=== PATIENT | female | born 1945 | race Caucasian/White ===

== ENCOUNTER → 2017-08-25 | Outpatient (CLI) | payer OTHER ==
[~2017-08-25] VITALS: Ht 170.2 cm; Wt 108.9 kg
[~2017-08-25] MED LIST: ASPIRIN325 PO; CELEBREX 200 M200 M1 PO; CHANTIX0.5 MG PO; COZAAR 25 MG TA25 MG PO; CYMBALTA60 MG PO; DEMADEX20 MG PO; DICLOFENAC SODI75 MG PO; EFFIENT10 MG PO; HYDROCODONE-AP1 EAC6 PO; MELATONIN5 M1 PO; METOPROLOL SUCC50 MG PO; MOBIC7.5 MG PO; POTASSIUM20 PO; TRAMADOL 50 MG50 MG PO; VENTOLIN HFA 1818 GM INH; ZANAFLEX4 MG PO; ZESTRIL40 MG PO; ZOCOR 10 MG TAB10 MG PO
--- NOTE | ~2017-08-25 | CATHLAB ---
[facility] [place] [address] INVASIVE PROCEDURE REPORT Name: ANANTH JONES [id number] Admission: 08/25/17 Attend Phys: Andrez Sánchez, Discharge: Date of : 47 Date of Service: 08/30/17 0845 Report #: [id number] THIS REPORT FOR: //name// APPROVED REPORT Patient Details Patient Status: Out-Patient Room #: The patient is a 72 year-old female Event Personnel Andrez Sánchez Senior Abap Developer, Ellis Morton RN, Rosy Lovett Sandifer, David Monitor Procedures Performed Right and Left Heart Cath w/or w/o Coronarie [id number] [facility] Hemostasis w/ Mynx Procedure Narrative The Right Groin^ was infiltrated with 1% Lidocaine subcutaneous anesthesia. A PINNACLE 6FR Sheath #[id number] sheath was inserted into the RFA^. Coronary angiography was performed using coronary diagnostic catheters. The right coronary system was accessed and visualized with a JR4 catheter. The left coronary system was accessed and visualized with a JL4 catheter. The left ventricle was accessed and visualized with a PIGTAIL catheter. Left ventriculogram was performed in 30 degree projection. An aortogram of the abdominal aorta was performed. The patient tolerated the procedure well and there were no complications associated with the procedure. There was no hematoma. Intraoperative Conscious Sedation Sedation start time: 8.17 Case end Time: 8.36 Fentanyl 25.0 mcg Versed 1.5 mg Fluoro Time: 2.01 minutes Dose: 452 mGy Contrast Type and Amount: Visipaque 125 ml Hemodynamics The right ventricular pressure is 60/18 mmHg. The pulmonary artery pressure is 59/30 mmHg with a mean of 41 mmHg. The mean pulmonary capillary wedge pressure is 29 mmHg. The aortic pressure is 162/76 mmHg with a mean of 76 mmHg. The left ventricular pressure is 131/15 mmHg with a mean of mmHg. The left ventricular end diastolic pressure [facility] [address] [place] [address] INVASIVE PROCEDURE REPORT Name: ANANTH JONES Room #: REG [facility]#: [id number] Admission: 08/25/17 Attend Phys: Andrez Sánchez, Discharge: Date of : 47 Date of Service: 08/30/17 0845 Report #: [id number] is 25 mmHg. The cardiac output using thermo method is 5.90 L/min. The cardiac index using thermo method is 2.86 L/min/m2. Conclusion #1 left main with mild irregularity giving rise to LAD and circumflex #2 LAD proximal stent with 50% in-stent restenosis and diffuse disease and LAD diagonal system but no occlusive disease #3 circumflex OM nondominant a mid circumflex lesion 50-60% but relatively small-caliber. #4 dominant right coronary artery long segment proximal mid vessel previously stented with mild in-stent restenosis eccentric proximal RCA lesion of 40-50% PDA is diffusely diseased #5 normal left ventricular size with inferior hypokinesis EF 40-45% #6. Right heart catheterization with cardiac output by thermodilution see above hemodynamics Recommendations and plan moderate elevation pulmonary pressures and wedge pressure. Needs more aggressive diuresis sodium and fluid restriction. Moderate coronary disease as described above no indication for current intervention. No lifting for 48 hours to lying in tub Jacuzzi or Deng for a week. Follow-up 3 months <ELECTRONICALLY SIGNED> By: Andrez Sánchez MD, FACC 08/30/17844 4 4 Andrez Sánchez MD, FACC /INF
--- NOTE | ~2017-08-25 | EKG ---
[place] [address] [facility] [employer] [place] [address] ELECTROCARDIOGRAM REPORT Name: ANANTH JONES [facility] [id number] Admission: 08/25/17 Attend Phys: Andrez Sánchez MD, Discharge: Date of : 47 Report #: [id number] THIS REPORT FOR: //name// [facility] Test Date: 2017-08-25 Test Time: 07:09:15 Pat Name: ANANTH JONES Department: Room: Gender: F Director Of Online Merchandising: JLAMBERTZ : 1945 Requested By: Andrez Sánchez Order Number: [id number] MD: Max Amador Measurements Intervals [place] Rate: 68 P: 79 [place]: 159 QRS: 48 QRSD: 103 T: -62 QT: 372 QTc: 396 Interpretive Statements Sinus rhythm Nonspecific ST and T wave abnormality Cannot rule out inferior infarct, age indeterminate Compared to ECG 04/25/2015 08:15:34 No significant changes Electronically Signed On 08-25-2017 8:19:08 [employer]PLANE MECH[employer]IC APPRENTICE by Max Amador [email or web address] <ELECTRONICALLY SIGNED> By: Max Amador MD, [facility] 08/25/17818 8 8 Max Amador MD, [facility] /EPI
[2017-08-25 07:18] VITALS: BP 143/72
[2017-08-25 07:28] LABS: HEMATOCRIT 41.5 % (37.0-47.0); HEMOGLOBIN 13.7 gm/dL (12.0-15.0); MCH 26.8 pg (26.0-34.0); MCV 81.2 fL (80.0-100.0); RBC 5.12 mil/uL (4.20-5.00); RDW 16.1 % (10.5-14.5); WBC 11.8 thou/uL (4.0-11.0)
[2017-08-25 07:36] LABS: CALCIUM 9.7 mg/dL (8.5-10.1); CREATININE 1.1 mg/dL (0.6-1.0); POTASSIUM 4.6 mmol/L (3.5-5.1)
== END | disposition home or self-care (01) ==
LOC: CATH 06:43
PROVIDERS: Internal Medicine Cardiovascular Disease
DX: I25.10 Atherosclerotic heart disease of native coronary artery without angina pectoris (principal); I10 Essential (primary) hypertension; E78.00 Pure hypercholesterolemia, unspecified; I42.9 Cardiomyopathy, unspecified; F17.210 Nicotine dependence, cigarettes, uncomplicated; Z95.5 Presence of coronary angioplasty implant and graft; Z96.642 Presence of left artificial hip joint; Z98.890 Other specified postprocedural states; Z88.8 Allergy status to other drugs, medicaments and biological substances; Z79.82 Long term (current) use of aspirin; Z79.899 Other long term (current) drug therapy; Z79.891 Long term (current) use of opiate analgesic

== ENCOUNTER → 2019-11-17 | Outpatient (CLI) | payer OTHER | LOC: SJCVC 14:37 | PROVIDERS: ATTEND Internal Medicine Cardiovascular Disease | DX: I21.29 ST elevation (STEMI) myocardial infarction involving other sites (principal); R94.31 Abnormal electrocardiogram [ECG] [EKG]; I10 Essential (primary) hypertension; E78.00 Pure hypercholesterolemia, unspecified; I25.5 Ischemic cardiomyopathy; I71.4 Abdominal aortic aneurysm, without rupture; I25.10 Atherosclerotic heart disease of native coronary artery without angina pectoris ==

== ENCOUNTER → 2019-11-22 | Outpatient (CLI) | payer OTHER | LOC: SJCVCIMAG 11:28 | DX: R00.0 Tachycardia, unspecified (principal); I25.10 Atherosclerotic heart disease of native coronary artery without angina pectoris; I10 Essential (primary) hypertension; E78.5 Hyperlipidemia, unspecified; F17.200 Nicotine dependence, unspecified, uncomplicated; Z79.82 Long term (current) use of aspirin; Z79.899 Other long term (current) drug therapy; Z88.8 Allergy status to other drugs, medicaments and biological substances; Z98.61 Coronary angioplasty status; Z95.0 Presence of cardiac pacemaker ==

== ENCOUNTER → 2020-06-07 | Outpatient (CLI) | payer OTHER | LOC: SJCVC 13:40 | PROVIDERS: ATTEND Internal Medicine Cardiovascular Disease | DX: I25.10 Atherosclerotic heart disease of native coronary artery without angina pectoris (principal); R94.31 Abnormal electrocardiogram [ECG] [EKG]; I44.7 Left bundle-branch block, unspecified; I10 Essential (primary) hypertension; I71.4 Abdominal aortic aneurysm, without rupture; I73.9 Peripheral vascular disease, unspecified; E78.00 Pure hypercholesterolemia, unspecified; F17.210 Nicotine dependence, cigarettes, uncomplicated; Z79.899 Other long term (current) drug therapy ==

== ENCOUNTER → 2020-12-27 | Outpatient (CLI) | payer OTHER | LOC: SJCVCIMAG 08:36 | PROVIDERS: ATTEND Internal Medicine Cardiovascular Disease | DX: I08.1 Rheumatic disorders of both mitral and tricuspid valves (principal); I11.9 Hypertensive heart disease without heart failure; I71.4 Abdominal aortic aneurysm, without rupture; I25.10 Atherosclerotic heart disease of native coronary artery without angina pectoris; E78.00 Pure hypercholesterolemia, unspecified; I25.5 Ischemic cardiomyopathy; I73.9 Peripheral vascular disease, unspecified; M79.604 Pain in right leg; M79.605 Pain in left leg; F17.200 Nicotine dependence, unspecified, uncomplicated; Z79.82 Long term (current) use of aspirin; Z79.899 Other long term (current) drug therapy ==

== ENCOUNTER 2021-02-06 14:49 | Emergency (ER) | payer OTHER ==
[~2021-02-06] VITALS: Ht 170.2 cm; Wt 99.8 kg
[2021-02-06] MEDS ORDERED: CLOPIDOGREL75 MG PO (15:10)
[2021-02-06] MEDS ORDERED: LEVOCETIRIZINE D5 MG PO (15:10)
[2021-02-06 15:35] LABS: ABSOLUTE NEUTROPHILS 12.5 thou/uL (1.4-8.2); BASOPHILS 0.8 % (0.0-2.0); EOSINOPHILS 0.1 % (0.0-3.0); HEMATOCRIT 50.9 % (37.0-47.0); HEMOGLOBIN 17.1 gm/dL (12.0-15.0); MCH 28.6 pg (26.0-34.0); MCHC 33.6 g/dL (28.0-37.0); MCV 85.1 fL (80.0-100.0); MONOCYTES 3.2 % (1.0-8.0); PLATELET COUNT 206 thou/uL (150-400); POLYS 87.9 % (36.0-66.0); RBC 5.98 mil/uL (4.20-5.00); RDW 15.3 % (10.5-14.5); WBC 14.2 thou/uL (4.0-11.0)
[2021-02-06 15:45] LABS: ANION GAP 13 mmol/L (7-16); BUN 18 mg/dL (7-18); CALCIUM 9.9 mg/dL (8.5-10.1); CHLORIDE 102 mmol/L (98-107); CO2 27 mmol/L (21-32); CREATININE 1.1 mg/dL (0.6-1.0); GLUCOSE 141 mg/dL (74-106); POTASSIUM 3.2 mmol/L (3.5-5.1); SODIUM 142 mmol/L (136-145)
[2021-02-06 15:55] LABS: ALBUMIN 3.7 g/dL (3.4-5.0); DIRECT BILIRUBIN < 0.1 mg/dL (<0.1-0.2); SGOT 12 U/L (15-37); SGPT 17 U/L (14-59); TOTAL BILIRUBIN 0.6 mg/dL (0.2-1.0); TOTAL PROTEIN 7.8 g/dL (6.4-8.2); TROPONIN-I <0.06 ng/mL (<0.06)
[2021-02-06] MEDS ORDERED: DOXYCYCLINE 10100 MG PO (17:00)
[2021-02-06 17:24] VITALS: BP 101/55
--- NOTE | 2021-02-06 17:26 | EKG ---
[place] [address] [place] [address] ELECTROCARDIOGRAM REPORT Name: ANANTH JONES [place] [facility]: [facility] [id number] Admission: 02/06/21 Attend Phys: Discharge: Date of : 47 Report #: [id number] [facility] ED Test Date: 2021-02-06 Test Time: 15:12:09 Pat Name: ANANTH JONES Department: Room: Gender: F Skin Former: SASHA : 1945 Requested By: Nicky Espinosa Order Number: [id number] MD: Max Amador Measurements Intervals [place] Rate: 87 P: 82 MD: 144 QRS: 55 QRSD: 116 T: -84 QT: 379 QTc: 456 Interpretive Statements Sinus rhythm Multiform ventricular premature complexes Nonspecific intraventricular conduction delay Nonspecific ST and T wave abnormality Compared to ECG 08/25/2017 07:09:15 Ventricular premature complex(es) now present Electronically Signed On 02-06-2021 17:26:05 CDT by Max Amador [email or web address] <ELECTRONICALLY SIGNED> By: Max Amador MD, [facility] 02/06/21 1726 D: [id number] Max Amador MD, FACC /EPI
== END 2021-02-06 17:24 | disposition home or self-care (01) ==
LOC: ER 14:49
PROVIDERS: Emergency Medicine
DX: J44.1 Chronic obstructive pulmonary disease with (acute) exacerbation (principal); Z20.822 Contact with and (suspected) exposure to COVID-19; E78.5 Hyperlipidemia, unspecified; I10 Essential (primary) hypertension; Z95.5 Presence of coronary angioplasty implant and graft; E78.00 Pure hypercholesterolemia, unspecified; Z96.642 Presence of left artificial hip joint; Z79.899 Other long term (current) drug therapy; Z79.2 Long term (current) use of antibiotics; Z79.82 Long term (current) use of aspirin; Z88.8 Allergy status to other drugs, medicaments and biological substances

== ENCOUNTER → 2021-06-27 | Outpatient (CLI) | payer OTHER ==
[~2021-06-27] MED LIST changes: +CLOPIDOGREL75 MG PO; +DOXYCYCLINE 10100 MG PO; +LEVOCETIRIZINE D5 MG PO
== END ==
LOC: SJCVC 15:09
PROVIDERS: ATTEND Internal Medicine Cardiovascular Disease
DX: R94.31 Abnormal electrocardiogram [ECG] [EKG] (principal); I25.10 Atherosclerotic heart disease of native coronary artery without angina pectoris; I10 Essential (primary) hypertension; E78.00 Pure hypercholesterolemia, unspecified; I71.4 Abdominal aortic aneurysm, without rupture; I42.9 Cardiomyopathy, unspecified; I77.9 Disorder of arteries and arterioles, unspecified; F32.9 Major depressive disorder, single episode, unspecified; M19.90 Unspecified osteoarthritis, unspecified site; F17.210 Nicotine dependence, cigarettes, uncomplicated; Z72.89 Other problems related to lifestyle; Z79.899 Other long term (current) drug therapy; Z88.8 Allergy status to other drugs, medicaments and biological substances